=== PATIENT | female | born 1985 | race Hispanic/Latino ===

== ENCOUNTER 2022-10-24 13:11 | Inpatient (IN) | payer MEDICAID, OTHER ==
[~2022-10-24 13:11] MED LIST: Bupivacaine 0.25% HCL 30 ML VIAL ONE
[2022-10-24] MEDS ORDERED: hydrALAZINE 20 MG/ML VIAL SLOW IVP PRN ×3 (14:16→19:58)
[2022-10-24] MEDS ORDERED: Ondansetron PF 4 MG/2 ML Vial IVP PRN ×2 (14:42→16:09)
[2022-10-24] MEDS ORDERED: Promethazine HCl 25 MG/ML VIAL IM PRN ×2 (14:42→16:09)
[2022-10-24] MEDS ORDERED: Misoprostol 200 MCG TAB PR PRN (14:42)
[2022-10-24] MEDS ORDERED: Ibuprofen 800 MG TAB PO PRN (14:42)
[2022-10-24] MEDS ORDERED: Lidocaine 1% (PF) 30 ML VIAL SC PRN (14:42)
[2022-10-24] MEDS ORDERED: Methylergonovine 0.2 MG/ML VIAL IM PRN (14:42)
[2022-10-24] MEDS ORDERED: Carboprost 250 MCG/ML AMP IM PRN (14:42)
[2022-10-24] MEDS ORDERED: Lactated Ringer's 1,000 ML IV SCH (14:45)
[2022-10-24] MEDS ORDERED: NS w/ Oxytocin 30 units 500 ML IV SCH ×2 (14:45)
[2022-10-24 15:52] LABS: Hemoglobin 12.9 g/dL (12.0-15.5); Mean Corpuscular HGB CONC 35.7 g/dL (32.0-36.0); Mean Corpuscular Hemoglobin 30.9 pg (27.0-33.0); Mean Corpuscular Volume 86.4 fl (81.6-98.3); Mean Platelet Volume 11.5 fl (7.4-10.4); Platelet Count 237 10x3/uL (150-450); RBC Distribution Width 12.3 % (11.5-14.5); Red Blood Cell (RBC) Count 4.18 10x6/uL (3.90-5.03); White Blood Cell (WBC) Count 9.8 10x3/uL (3.5-10.5)
[2022-10-24] MEDS ORDERED: Fentanyl 2 mcg/Bup 0.1% Cadd 100 ML ONE (16:02)
[2022-10-24] MEDS ORDERED: Moisturizing Cream (Eucerin) 113 GM JAR TOP PRN (16:09)
[2022-10-24] MEDS ORDERED: diphenhydrAMINE 50 MG/ML VIAL IVP PRN (16:09)
[2022-10-24] MEDS ORDERED: Lactated Ringer's 500 ML IV PRN (16:09)
[2022-10-24] MEDS ORDERED: Naloxone HCl 0.4 mg/ml Vial IVP PRN ×2 (16:09)
[2022-10-24] MEDS ORDERED: Acetaminophen 325 MG TAB PO PRN (16:09)
[2022-10-24] MEDS ORDERED: ePHEDrine Sulfate 50 MG/10 ML VIAL SLOW IVP PRN (16:09)
[2022-10-24] MEDS ORDERED: Communication Order-Pharmacy FS SCH (16:15)
[2022-10-24] MEDS ORDERED: Fentanyl 2 mcg/Bupivacaine 0.1% Cassette 100 ML EPIDURAL SCH (16:15)
[2022-10-24 16:25] LABS: Syphilis Antibody Nonreactive (Nonreactive); Syphilis Antibody Index 0.04 S/CO (<1.00 Non-Reactive)
[2022-10-24 16:26] LABS: HBSAg Index 0.17 S/CO (0-0.99); Hep B Surf Ag Non-Reactive S/CO (NonReactive)
[2022-10-24 17:08] VITALS: BMI 31.3
[2022-10-24] MEDS ORDERED: Calcium Carbonate 500 MG ChewTAB PO PRN (18:44)
[2022-10-24] MEDS ORDERED: Boostrix 0.5 ML (Tdap) VIAL (>/=7 yrs of age) IM ONE (19:58)
[2022-10-24] MEDS ORDERED: Milk Of Magnesia 30 ML UDCUP PO PRN (19:58)
[2022-10-24] MEDS ORDERED: Bisacodyl 10 MG SUPP PR PRN (19:58)
[2022-10-24] MEDS: Docusate 100 MG CAP PO SCH (22:41)
[2022-10-24] MEDS ORDERED: Ibuprofen 800 MG TAB PO SCH (22:45)
[2022-10-25] MEDS: Ibuprofen 800 MG TAB PO SCH ×3 (05:07→21:04)
[2022-10-25] MEDS: Ferrous Sulfate 325 MG TAB PO SCH ×2 (07:32→16:43)
[2022-10-25] MEDS: Docusate 100 MG CAP PO SCH ×2 (08:24→21:04)
[2022-10-25] MEDS ORDERED: Prenatal Vitamin 1 TAB PO SCH (09:00)
[2022-10-25 21:30] VITALS: BP 116/59; TEMP 97.5
== END 2022-10-25 22:20 | disposition home or self-care (01) | DRG 807 ==
LOC: CSHLD/OP 13:11 → CSHLD 16:16 → CSHPP 22:01
PROVIDERS: ADMIT Student in an Organized Health Care Education/Training Program; ATTEND Student in an Organized Health Care Education/Training Program
PROC: 10E0XZZ Delivery of Products of Conception, External Approach (ICD-10-PCS; principal; 2022-10-24)
PROC: 10907ZC Drainage of Amniotic Fluid, Therapeutic from Products of Conception, Via Natural or Artificial Opening (ICD-10-PCS; 2022-10-24)
DX: O99.02 Anemia complicating childbirth (principal); Z37.0 Single live birth; D64.9 Anemia, unspecified; O71.82 Other specified trauma to perineum and vulva; Z3A.39 39 weeks gestation of pregnancy; Z20.822 Contact with and (suspected) exposure to COVID-19; Z79.82 Long term (current) use of aspirin; O99.824 Streptococcus B carrier state complicating childbirth
CPT/HCPCS: 36415; 51702; 85027; 86780; 86850; 86900; 86901; 87340; 99285; J7120; S0020